=== PATIENT | female | born 1935 | race African-American/Black ===

== ENCOUNTER 2020-01-24 17:29 | Emergency (ER) | payer MEDICARE ==
[2020-01-24] MEDS ORDERED: oxyCODONE /ACETAMINOPHEN 5-325MG TAB PO ONE (19:39)
[2020-01-24] MEDS ORDERED: ONDANSETRON 4 MG ODT TAB PO ONE (19:40)
[2020-01-24] MEDS ORDERED: MORPHINE 4 MG/1 ML INJ IM ONE (19:40)
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
[2020-01-24 20:24] LABS: Alanine Aminotransferase 65 units/L (7-56); Albumin 4.6 g/dL (3.9-5); Basophils % (Auto) 0.5 % (0.0-1.8); Blood Urea Nitrogen 13 mg/dL (7-17); Calcium 9.6 mg/dL (8.4-10.2); Eosinophils % (Auto) 0.5 % (0.0-4.3); Hematocrit 41.4 % (30.3-42.9); Hemoglobin 14.3 gm/dl (10.1-14.3); Hemolysis Index 27; Lymphocytes # (Auto) 1.7 K/mm3 (1.2-5.4); Lymphocytes % (Auto) 18.3 % (13.4-35.0); Mean Corpuscular HGB Conc 35 % (30-34); Mean Corpuscular Volume 96 fl (79-97); Monocytes # (Auto) 0.4 K/mm3 (0.0-0.8); Monocytes % (Auto) 4.4 % (0.0-7.3); Platelet Count 226 K/mm3 (140-440); Red Blood Count 4.32 M/mm3 (3.65-5.03); Red Cell Distribution Width 12.2 % (13.2-15.2)
[2020-01-24 20:28] LABS: BUN/Creatinine Ratio 33
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
[2020-01-24] MEDS ORDERED: MORPHINE 4 MG/1 ML INJ IV ONE ×2 (20:48→20:50)
[2020-01-24] MEDS ORDERED: ONDANSETRON 4 MG/2 ML INJ IV ONE (20:48)
[2020-01-24] MEDS ORDERED: KETOROLAC 30 MG/1 ML INJ IV ONE (20:50)
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
[2020-01-24 23:42] VITALS: BP 145/68
== END 2020-01-24 23:41 | disposition home or self-care (01) ==
LOC: ED 17:29
DX: M48.54XA Collapsed vertebra, not elsewhere classified, thoracic region, initial encounter for fracture (principal); M62.830 Muscle spasm of back; I25.2 Old myocardial infarction; E11.9 Type 2 diabetes mellitus without complications; M19.91 Primary osteoarthritis, unspecified site; K21.9 Gastro-esophageal reflux disease without esophagitis; Z90.49 Acquired absence of other specified parts of digestive tract; Z79.1 Long term (current) use of non-steroidal anti-inflammatories (NSAID); Z79.84 Long term (current) use of oral hypoglycemic drugs; Z79.899 Other long term (current) drug therapy; V49.59XA Passenger injured in collision with other motor vehicles in traffic accident, initial encounter; Y93.89 Activity, other specified; Y92.488 Other paved roadways as the place of occurrence of the external cause; Y99.8 Other external cause status
CPT/HCPCS: 36415; 70450; 71101; 72070; 72100; 72125; 72128; 72131; 80053; 83690; 85025; 96374; 96375; 99284; J1885; J2270; J2405